=== PATIENT | female | born 1975 | race African-American/Black ===

== ENCOUNTER 2017-08-26 15:09 | Emergency (ER) | payer OTHER ==
[~2017-08-26] VITALS: Ht 162.6 cm; Wt 129.5 kg
[~2017-08-26 15:09] MED LIST: PERCOCET 5/31 TABLET PO; ULTRAM50 MG PO; VENTOLIN HFA18 GM IH
[2017-08-26 15:27] LABS: HEMATOCRIT 37.2 % (36.0-46.0); HEMOGLOBIN 12.7 G/DL (11.9-15.5); MCH 29.2 PG (29.0-34.0); MCHC 34.1 G/DL (30.0-36.0); MCV 85.5 FL (83-99); PLATELET COUNT 309 K/uL (156-360); RBC DIS.WIDTH-CV 14.4 % (11.8-14.6); RED BLOOD COUNT 4.35 M/uL (3.80-5.20); WHITE BLOOD COUNT 13.3 K/uL (4.1-10.2)
[2017-08-26 15:36] LABS: CHLORIDE 105 mEq/L (99-109); POTASSIUM 3.9 mEq/L (3.7-5.4); SODIUM 137 mEq/L (136-147)
[2017-08-26 15:38] LABS: GLUCOSE 86 mg/dL (70-99); TOTAL PROTEIN 6.9 g/dL (6.4-8.3)
[2017-08-26 15:40] LABS: TOTAL BILIRUBIN 0.3 mg/dL (0.0-1.0)
[2017-08-26 15:41] LABS: ALKALINE PHOSPHATASE 76 IU/L (3-129)
[2017-08-26 15:42] LABS: CREATININE 0.7 mg/dL (0.6-1.3); GFR ESTIMATE (CALCULATED) > 59 mL/min/
[2017-08-26 15:43] LABS: AST (GOT) 14 IU/L (2-34); UREA NITROGEN (BUN) 13 mg/dL (9-23)
[2017-08-26 15:45] LABS: ALT (GPT) 19 IU/L (3-49)
[2017-08-26 17:15] LABS: APPEARANCE CLOUDY ((CLEAR)); BILIRUBIN NEGATIVE; BLOOD NEGATIVE; COLOR AMBER ((YELLOW)); GLUCOSE (STRIP) NEGATIVE; KETONES NEGATIVE; LEUKOCYTES TRACE; NITRITE NEGATIVE; PROTEIN (STRIP) 30
[2017-08-26 17:22] LABS: BACTERIA RARE /HPF; EPITHELIAL CELLS 1+ /HPF; MUCUS TRACE /LPF; RED BLOOD CELLS 0-5 /HPF (0-5); UCUL ADDED? NO; WHITE BLOOD CELLS 0-5 /HPF (0-5)
[2017-08-26] MEDS ORDERED: MOTRIN600 MG PO (20:07)
[2017-08-26 20:15] VITALS: BP 102/63
== END 2017-08-26 20:20 | disposition home or self-care (01) ==
LOC: EME 15:09
DX: R10.31 Right lower quadrant pain (principal); K63.89 Other specified diseases of intestine; J45.909 Unspecified asthma, uncomplicated; F32.9 Major depressive disorder, single episode, unspecified; F17.200 Nicotine dependence, unspecified, uncomplicated; Z90.710 Acquired absence of both cervix and uterus; Z90.49 Acquired absence of other specified parts of digestive tract
CPT/HCPCS: 74176; 74177; 80053; 81003; 84702; 85027; 99281; 99284; J1885; J2405; J7030

== ENCOUNTER 2017-10-21 10:33 | Emergency (ER) | payer OTHER ==
[~2017-10-21] VITALS: Ht 167.6 cm; Wt 127.8 kg
[~2017-10-21 10:33] MED LIST changes: +MOTRIN600 MG PO
[2017-10-21] MEDS ORDERED: INDOCIN25 MG PO (12:50)
[2017-10-21] MEDS ORDERED: FUTURO RESTORI1 EACH MC (12:51)
[2017-10-21 13:01] VITALS: BP 107/73
== END 2017-10-21 13:03 | disposition home or self-care (01) ==
LOC: EME 10:33
DX: M79.672 Pain in left foot (principal); R60.0 Localized edema; J45.909 Unspecified asthma, uncomplicated; Z90.710 Acquired absence of both cervix and uterus; F17.200 Nicotine dependence, unspecified, uncomplicated
CPT/HCPCS: 93971; 99281; 99284